=== PATIENT | female | born 1980 | race Caucasian/White ===

== ENCOUNTER 2016-11-07 14:46 | Emergency (ER) | payer OTHER ==
[~2016-11-07] VITALS: Ht 162.6 cm; Wt 91.9 kg
[~2016-11-07 14:46] MED LIST: ADVIN50/60 INH; ALBUAER INH; ALPR1TAB3 PO; ASPI-391 PO; CITA40TA12 PO; DXP/75 PO; GABA1CAP4 PO; GEMF600T PO; GLC850 PO; HMLI SQ; INSDGI SC; LSN20 PO; MONT1TAB3 PO; PRLSR20 PO; RANI150T3 PO; ZOLP10TA PO
[2016-11-07 15:00] VITALS: TEMP 36.7; Ht 162.6 cm; Wt 91.9 kg
[2016-11-07] MEDS ORDERED: INSDGI SC (15:55)
[2016-11-07] MEDS ORDERED: INSU100I SC (15:55)
[2016-11-07] MEDS ORDERED: VNTHFA/IN INH (15:58)
[2016-11-07] MEDS ORDERED: HYDROmorphone INJ 1 MG/ML SYR IM STA (16:03)
[2016-11-07] MEDS ORDERED: ONDANSETRON 4MG OD TAB PO ONE (16:15)
--- NOTE | 2016-11-07 16:27 | DIAGNOSTIC IMAGING REPORT ---
LEFT SHOULDER 3 VIEWS HISTORY: Left shoulder pain. COMPARISON: None. FINDINGS: There is no fracture or dislocation. Soft tissues are unremarkable. The left clavicle is intact. IMPRESSION: No fractures. Electronically signed by: Mahesh Walsh M.D. 11/07/2016 4:26 PM Dictated Date/Time: 11/07/2016 4:25 PM
[2016-11-07 17:02] VITALS: BP 113/72; PULSE 86; O2SAT 93
--- NOTE | 2016-11-07 17:06 | EMERGENCY ROOM VISIT NOTE ---
ED Visit Note First contact with patient: 15:12 CHIEF COMPLAINT: Left arm pain 2-1/2 days HISTORY OF PRESENT ILLNESS: Patient is a [id number] 35-year-old white female who presents to the emergency department for evaluation of left upper arm pain radiating down to her fingers that started about 2-1/2 days ago. She initially noticed some discomfort in the left shoulder/biceps and triceps region. The pain now radiates down her left arm and is worse with any attempts at movement. She denies any direct trauma to the area, no falls or unusual activity prior to the onset of her pain. She has used Excedrin for discomfort. 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 She states that she fell asleep on a chair wrong and she couldn' t move her wrist. She states that she had nerve studies which diagnosed the problem. She did physical therapy and her symptoms completely resolved. She denies any headache or neck pain. She's never had symptoms similar to this previously. She denies any chest pain, palpitations or shortness of breath. Patient also reports that she feels "dehydrated." She states that she has had a dry mouth despite trying to drink a lot of fluids. She denies nausea, vomiting or diarrhea. Her blood sugars have been controlled. REVIEW OF SYSTEMS: Review of systems as per HPI. All other systems reviewed were negative. At least 6 systems reviewed. PMH: Electronic medical records are reviewed and summarized as above/below. See Problem List. SOCIAL HISTORY: Patient lives at home. Smoker. PHYSICAL EXAM: Vital Signs: Reviewed nurse's notes. CONSTITUTIONAL: Patient is an uncomfortable appearing 35-year-old white female who is awake and alert and in moderate distress due to her left arm pain. HEENT: Normocephalic, atraumatic. Pupils equal, round, reactive to light and accommodation. EOMs intact without nystagmus. Sclera are anicteric. Tympanic membranes intact, with normal landmarks. External canals are clear. Oral and nasopharynx are clear. Mucous membranes are moist. HEART: Regular rate and rhythm. LUNGS: Clear to auscultation. EXTREMITIES: The left shoulder is not swollen or deformed on inspection. The range of motion is limited in all directions because of the pain. There is no tenderness of the AC joint, she does have discomfort over the proximal biceps tendon and rotator cuff insertion. No pain, swelling or erythema noted in the biceps region. No palpable cords. Elbow was nontender, wrist is nontender, range of motion there is full, but causes shoulder pain. Radial and ulnar pulses are easily palpable. Sensation light touch is intact. EMERGENCY DEPARTMENT COURSE: BSG was 153. An X-ray of the shoulder does not show any fractures, dislocations, or other abnormality. The patient was fitted with an arm sling. She presents the emergency department for evaluation of left arm pain which appears to be musculoskeletal in nature. She may have a shoulder tendinitis or bursitis. She does not have any evidence for calcific tendinitis on x-ray. I do not suspect DVT. She does not have any signs of infection including cellulitis. It does not appear to be consistent with a cervical radiculopathy. The patient is on a treatment plan restricting her to 2 narcotic injections per month regarding pain related complaints. She did wish to proceed with an injection for her left arm pain. She was given Zofran 4 mg ODT and Dilaudid 1 mg IM. She was observed in the emergency department and did not have any adverse reactions. She has received these medications in the past. X-ray findings were discussed with her. She was encouraged to use the arm sling for comfort. She was advised to use ibuprofen and ice for discomfort. With regards to her dehydration, her blood sugars are appropriate and she does not demonstrating any evidence for dehydration or electrolyte abnormality. I do not suspect DKA. She did not require any IV fluids and was given oral fluids in the emergency department. She was encouraged to follow-up with her primary care provider and orthopedics for further care and management of her symptoms. She was discharged to home with her driving. She rated her pain a 5/10 at discharge. Patient was reviewed in the [facility] Prescription Drug Monitoring Program, and there were no red flags noted. LEFT SHOULDER 3 VIEWS HISTORY: Left shoulder pain. COMPARISON: None. FINDINGS: There is no fracture or dislocation. Soft tissues are unremarkable. The left clavicle is intact. IMPRESSION: No fractures. Problem List Medical Problems: (1) Anxiety Status: Chronic (2) Asthma Status: Chronic (3) Benign hypertension Status: Chronic (4) Bronchitis Status: Resolved (5) Depression Status: Chronic (6) Diabetes Status: Chronic (7) Hyperlipidemia Status: Chronic Surgical Problems: (1) History of cholecystectomy Status: Resolved (2) Hx of appendectomy Status: Resolved (3) Previous section Status: Resolved Current/Historical Medications Scheduled Albuterol Hfa (Ventolin Hfa), 2-4 PUFFS INH Q6H Citalopram Hydrobromide (Celexa), 40 MG PO DAILY Doxepin Hcl (Doxepin), 75 MG PO DAILY Fluticasone Prop/Salmeterol (Advair Diskus 500/50 60 Dose), 1 PUFF INH BID Gabapentin (Gabapentin), 400 MG PO TID Gemfibrozil (Lopid), 600 MG PO DAILY Insulin Glargine (Lantus), 90 UNITS SC AMPM Insulin Lispro (Human) (Humalog), 10-20 UNITS SC DAILY Lisinopril (Lisinopril), 20 MG PO DAILY Metformin HCl (Metformin HCl), 850 MG PO TID Montelukast Sodium (Singulair), 10 MG PO QPM Omeprazole (Prilosec), 20 MG PO BID Ranitidine Hcl (Zantac), 150 MG PO BID Scheduled PRN Alprazolam (Xanax), 1 MG PO HS PRN for Anxiety Zalmrub-Xcqbavxklinek-Ubmqannx (Excedrin Extra Strength), 1-2 TAB PO Q4 PRN for Migraine Zolpidem Tartrate (Ambien), 10 MG PO HS PRN for Sleep Allergies Coded Allergies: Amoxicillin (Verified Allergy, Intermediate, HIVES/ITCHING, 11/07/16) Codeine (Verified Allergy, Unknown, itchiness, 11/07/16) Ketorolac Tromethamine (Verified Allergy, Unknown, hives, 11/07/16) Latex (Verified Allergy, Unknown, rash, 11/07/16) Hydroxyzine (Verified Adverse Reaction, Intermediate, HEART PALPITATIONS, 11/07/16) Uncoded Allergies: VASCEPA (Allergy, Severe, CP, SOB, 01/17/15) Vital Signs Date Time Temp Pulse Resp B/P Pulse Ox O2 Delivery O2 Flow Rate FiO2 11/07/16 17:02 86 113/72 93 Room Air 11/07/16 15:00 36.7 95 20 114/76 92 Room Air Laboratory Results Test 11/07/16 15:48 Bedside Glucose 153 mg/dl (70-90) Medications Administered Medications (Trade) Dose Ordered Sig/Aretha Route Start Time Stop Time Status Last Admin Dose Admin Ondansetron HCl (Zofran Odt) 4 mg ONE ONCE PO 11/07/16 16:15 11/07/16 16:16 DC 11/07/16 16:22 4 MG Hydromorphone HCl (Dilaudid Inj) 1 mg NOW STAT IM 11/07/16 16:03 11/07/16 16:04 DC 11/07/16 16:22 1 MG Departure Information Impression Primary Impression: Arm pain, left Referrals No Doctor, Assigned (PCP) Patient Instructions My [facility] Additional Instructions DO NOT drive, drink alcohol, operate machinery, or perform dangerous activities today. You were given medications in the ER that can affect your ability to safely function or operate a vehicle. Ibuprofen(Motrin, Advil) may be used for fever or pain. Use 600mg every six hours as needed. Take with food. Avoid using more than 2400mg in a 24 hour period. Do not use 2400mg per day for more than three consecutive days without physician direction. Prolonged inappropriate use can lead to stomach upset or ulcers. This medication can be taken if you need to drive, work, or perform activities which may be dangerous when taking narcotic pain medication. (AND/OR) Acetaminophen(Tylenol) may be used for fever or pain. Use 1000mg every six hours as needed. Avoid using more than 3000mg in a 24 hour period. This medication can be taken if you need to drive, work, or perform activities which may be dangerous when taking narcotic pain medication. Ice compresses for 20 minutes at a time four times daily for 2-3 days. Use the sling as instructed. Remove your arm from the sling 4-6 times a day and move all the joints around to keep them loose. Rest and elevate your injury. Continue current medications. Return to the ER immediately for any numbness, tingling, severe pain, extreme swelling in the extremity or as needed. Follow-up with your family doctor or orthopedic surgery for further care and management of your left arm pain.
== END 2016-11-07 17:13 | disposition home or self-care (01) ==
LOC: C.EDB 14:47 → C.EDD 17:13
DX: M79.602 Pain in left arm (principal); F17.200 Nicotine dependence, unspecified, uncomplicated; F41.9 Anxiety disorder, unspecified; J45.909 Unspecified asthma, uncomplicated; I10 Essential (primary) hypertension; E11.9 Type 2 diabetes mellitus without complications; E78.5 Hyperlipidemia, unspecified; Z90.49 Acquired absence of other specified parts of digestive tract; Z79.4 Long term (current) use of insulin

== ENCOUNTER 2016-12-05 00:14 | Observation (INO) | payer OTHER ==
[2016-12-05] VITALS (9 sets, daily range): BP systolic 91–113; BP diastolic 58–77; PULSE 72–83; TEMP 36.5–37; O2SAT 94–98; Ht 162.6 cm; Wt 91.3 kg
[~2016-12-05] VITALS: Ht 162.6 cm; Wt 91.3 kg
[~2016-12-05 00:14] MED LIST changes: -ALBUAER INH; -HMLI SQ; +INSU100I SC; +VNTHFA/IN INH
[2016-12-05] MEDS ORDERED: SODIUM CHLORIDE 0.9% 1000ML 1,000 ML IV STA (00:34)
[2016-12-05 00:59] LABS: MEAN CELL VOLUME 90.1 fL (80-100); MEAN CORPUSCULAR HEMOGLOBIN 33.8 pg (25-34); MEAN CORPUSCULAR HGB CONC 37.6 g/dl (32-36); MEAN PLATELET VOLUME 9.8 fL (7.4-10.4); PLATELET COUNT 202 K/uL (130-400); RED BLOOD COUNT 4.55 M/uL (4.2-5.4); WHITE BLOOD COUNT 9.16 K/uL (4.8-10.8)
[2016-12-05 01:04] LABS: ISTAT CREATININE 0.5 mg/dl (0.6-1.3); ISTAT HEMOGLOBIN 15.3 g/dl (12.0-16.0); ISTAT IONIZED CALCIUM 1.19 mmol/l (1.12-1.32)
[2016-12-05 01:10] LABS: INR 0.9 (0.9-1.1); PARTIAL THROMBOPLASTIN RATIO 0.9
[2016-12-05 01:23] LABS: ALT/SGPT 15 U/L (12-78); AST/SGOT 11 U/L (15-37); BLOOD UREA NITROGEN 10 mg/dl (7-18); CALCIUM 8.6 mg/dl (8.5-10.1); CARBON DIOXIDE 23 mmol/L (21-32); CHLORIDE 106 mmol/L (98-107); CREATININE 0.65 mg/dl (0.60-1.20); GLUCOSE 261 mg/dl (70-99); MAGNESIUM 1.5 mg/dl (1.8-2.4); POTASSIUM 3.7 mmol/L (3.5-5.1); SODIUM 139 mmol/L (136-145)
[2016-12-05 01:28] LABS: URINE APPEARANCE CLEAR (CLEAR); URINE BILIRUBIN NEG (NEG); URINE COLOR YELLOW; URINE NITRITE NEG (NEG); URINE SPECIFIC GRAVITY 1.027 (1.000-1.030); UROBILINOGEN NEG (NEG); ZZURINE CULT IF INDIC CATH NO
[2016-12-05 01:28] LABS: ALKALINE PHOSPHATASE 71 U/L (45-117); PHOSPHORUS 3.3 mg/dl (2.5-4.9)
[2016-12-05 01:29] LABS: MANUAL MICROSCOPIC REQUIRED? NO; REVIEW REQ? NO
[2016-12-05 01:35] LABS: ALLEN TEST POS (POS); ARTERIAL BLD GAS O2 SATURATION 93.2 % (90-95); ARTERIAL BLOOD GAS BASE EXCESS -2.1 mEq/L (-9-1.8); ARTERIAL BLOOD GAS HCO3 22 mmol/L (19-24); ARTERIAL BLOOD GAS PO2 72 mm/Hg (80-95); O2 ADMINISTRATION ROOM AIR
[2016-12-05 01:37] LABS: BASO % 0.2 %; BASO ABS # 0.02 K/uL (0-0.2); COMPLETE YES; EOS % 0.9 %; IG% 0.5 %; LYMPH % 40.8 %; LYMPH ABS # 3.74 K/uL (1.2-3.4); MONO % 5.8 %; NEUT % 51.8 %
[2016-12-05 01:40] LABS: ACETAMINOPHEN < 2 ug/ml (10-30)
[2016-12-05 01:44] LABS: BENZODIAZEPINE, URINE POS (NEG); COCAINE,URINE NEG (NEG); PHENCYCLIDINE, URINE NEG (NEG)
[2016-12-05] MEDS ORDERED: ACET1TAB84 PO (02:22)
[2016-12-05] MEDS ORDERED: NORE1TAB50 PO (02:30)
--- NOTE | 2016-12-05 02:38 | EMERGENCY ROOM VISIT NOTE ---
History Report prepared by Emelia: Shari Hussein Under the Supervision of: Dr. Ever Rodriguez M.D. First contact with patient: 00:29 Chief Complaint: ILLNESS Stated Complaint: ILLNESS,LOSS OF BALANCE,MIGRAINE,ABDOMINAL PAIN,BS History of Present Illness The patient is a 35 year old female who presents to the Emergency Room with complaints of worsening illness with onset several hours ago. Per patient, she saw her PCP this afternoon and felt fine. This evening, the patient started to feel ill. Her blood sugar was 307 when she last checked it, and she notes that her blood sugar has been higher than usual recently. The patient has abdominal pain. She has had blood in her stool for months. The patient has had urinary frequency and she feels weak. She denies recent falls, hitting her head. Additionally, this afternoon, the patient took one dose of gabapentin. Source of History: patient Onset: several hours ago Position: other (global ) Quality: other (illness) Timing: worsening Associated Symptoms: + abdominal pain, + urinary symptoms, + weakness Note: Her blood sugar was 307 when she last checked it, and she notes that her blood sugar has been higher than usual recently. She has had blood in her stool for months. Review of Systems See HPI for pertinent positives & negatives. A total of 10 systems reviewed and were otherwise negative. Past Medical & Surgical Medical Problems: (1) Anxiety (2) Aortic Atherosclerosis (3) Asthma (4) Benign hypertension (5) Bronchitis (6) Depression (7) Diabetes (8) Esophageal Reflux (9) Hyperlipidemia (10) Hyperlipidemia Nec/Nos (11) Hypertension Nos Surgical Problems: (1) History of cholecystectomy (2) Hx of appendectomy (3) Previous section Family History FH: HTN (hypertension) FH: cancer FH: diabetes mellitus FH: lung disease Social History Smoking Status: Current Every Day Smoker Drug Use: none Marital Status: Housing Status: lives with family Occupation Status: unemployed Current/Historical Medications Scheduled Citalopram Hydrobromide (Celexa), 40 MG PO DAILY Doxepin Hcl (Doxepin), 75 MG PO DAILY Fluticasone Prop/Salmeterol (Advair Diskus 500/50 60 Dose), 1 PUFF INH BID Gabapentin (Gabapentin), 300 MG PO TID Gemfibrozil (Lopid), 600 MG PO DAILY Insulin Glargine (Lantus), 90 UNITS SC AMPM Insulin Lispro (Human) (Humalog), 10-20 UNITS SC AC Lisinopril (Lisinopril), 20 MG PO DAILY Metformin HCl (Metformin HCl), 850 MG PO TID Montelukast Sodium (Singulair), 10 MG PO QPM Norethindrone (Contraceptive) (Norethindrone), 0.35 MG PO DAILY Omeprazole (Prilosec), 20 MG PO BID Ranitidine Hcl (Zantac), 150 MG PO BID Scheduled PRN Acetaminophen (Tylenol Arthritis Ext Rel), 650 MG PO Q4 PRN for Pain Albuterol Hfa (Ventolin Hfa), 2-4 PUFFS INH Q8 PRN for SOB/Wheezing Alprazolam (Xanax), 1 MG PO HS PRN for Anxiety Zolpidem Tartrate (Ambien), 10 MG PO HS PRN for Sleep Allergies Coded Allergies: Amoxicillin (Verified Allergy, Intermediate, HIVES/ITCHING, 11/07/16) Codeine (Verified Allergy, Unknown, itchiness, 11/07/16) Ketorolac Tromethamine (Verified Allergy, Unknown, hives, 11/07/16) Latex (Verified Allergy, Unknown, rash, 11/07/16) Hydroxyzine (Verified Adverse Reaction, Intermediate, HEART PALPITATIONS, 11/07/16) Uncoded Allergies: VASCEPA (Allergy, Severe, CP, SOB, 01/17/15) Physical Exam Vital Signs Date Time Temp Pulse Resp B/P Pulse Ox O2 Delivery O2 Flow Rate FiO2 12/05/16 02:27 88 Room Air 12/05/16 02:27 95 Nasal Cannula 2.0 12/05/16 01:56 73 21 107/71 93 Room Air 12/05/16 00:19 36.5 94 18 139/89 98 Room Air Physical Exam GENERAL: Patient is unkempt, disheveled, and has dirt on her hands. Patient non cooperative with exam, she keeps eyes have closed but can clearly open them without a problem. She will not sit up in bed for the exam. HEENT: No acute trauma, normocephalic atraumatic, mucous membranes moist, no nasal congestion, no scleral icterus. NECK: No stridor, no adenopathy, no meningismus, trachea is midline. LUNGS: No dyspnea. Clear to auscultation and equal bilaterally. No wheeze, no rhonchi. HEART: Regular rate and rhythm. No murmurs, rubs, gallops appreciated. ABDOMEN: She has vague diffuse abdominal tenderness without peritonitis. Abdominal pain does not exist when listening to abdominal sounds. Soft, bowel sounds positive, no masses appreciated, no peritonitis. BACK: No midline tenderness, no CVA tenderness EXTREMITIES: When asked to raise arms, she shakes violently but can raise arms when not being asked about it. Normal motion all extremities, no cyanosis, no edema. NEUROLOGIC: Alert and oriented, clear speech, no acute motor or sensory deficits , no focal weakness, cranial nerves grossly intact. SKIN: No rash, no jaundice, no diaphoresis. Medical Decision & Procedures ER Provider Diagnostic Interpretation: X ray results and stated below per my interpretation. Other radiology results and stated below per my review and radiologist interpretation: Chest: 1 view: No infiltrate, no effusion, normal cardiac border. CT Head: Comparison CT of the head without contrast material 08/12/2016. No ICH, mass effect or edema. No evidence of acute cortical stroke. Fluid level in the right maxillary antrum suggesting acute sinusitis. Remaining visualized upper paranasal sinuses and mastoid air cells are clear. Radiologist: Billy Saenz MD. Laboratory Results 12/05/16 00:45 Red Blood Count 4.55, Mean Corpuscular Volume 90.1, Mean Corpuscular Hemoglobin 33.8, Mean Corpuscular Hemoglobin Concent 37.6, Mean Platelet Volume 9.8, Neutrophils (%) (Auto) 51.8, Lymphocytes (%) (Auto) 40.8, Monocytes (%) (Auto) 5.8, Eosinophils (%) (Auto) 0.9, Basophils (%) (Auto) 0.2, Neutrophils # (Auto) 4.74, Lymphocytes # (Auto) 3.74, Monocytes # (Auto) 0.53, Eosinophils # (Auto) 0.08, Basophils # (Auto) 0.02 12/05/16 00:45 Test 12/05/16 00:44 12/05/16 00:45 12/05/16 00:49 12/05/16 01:01 Bedside Lactic Acid Venous 1.25 mmol/L (0.90-1.70) White Blood Count 9.16 K/uL (4.8-10.8) Red Blood Count 4.55 M/uL (4.2-5.4) Hemoglobin 15.4 g/dL (12.0-16.0) Hematocrit 41.0 % (37-47) Mean Corpuscular Volume 90.1 fL (80-100) Mean Corpuscular Hemoglobin 33.8 pg (25-34) Mean Corpuscular Hemoglobin Concent 37.6 g/dl (32-36) Platelet Count 202 K/uL (130-400) Mean Platelet Volume 9.8 fL (7.4-10.4) Neutrophils (%) (Auto) 51.8 % Lymphocytes (%) (Auto) 40.8 % Monocytes (%) (Auto) 5.8 % Eosinophils (%) (Auto) 0.9 % Basophils (%) (Auto) 0.2 % Neutrophils # (Auto) 4.74 K/uL (1.4-6.5) Lymphocytes # (Auto) 3.74 K/uL (1.2-3.4) Monocytes # (Auto) 0.53 K/uL (0.11-0.59) Eosinophils # (Auto) 0.08 K/uL (0-0.5) Basophils # (Auto) 0.02 K/uL (0-0.2) RDW Standard Deviation 41.6 fL (36.4-46.3) RDW Coefficient of Variation 12.7 % (11.5-14.5) Immature Granulocyte % (Auto) 0.5 % Immature Granulocyte # (Auto) 0.05 K/uL (0.00-0.02) Red Blood Cell Morphology Unremarkable Prothrombin Time 10.0 SECONDS (9.0-12.0) Prothromb Time International Ratio 0.9 (0.9-1.1) Activated Partial Thromboplast Time 24.1 SECONDS (21.0-31.0) Partial Thromboplastin Ratio 0.9 Est Creatinine Clear Calc Drug Dose 128.4 ml/min Estimated GFR () 131.5 Estimated GFR (Non- 113.4 BUN/Creatinine Ratio 16.0 (10-20) Calcium Level 8.6 mg/dl (8.5-10.1) Phosphorus Level 3.3 mg/dl (2.5-4.9) Magnesium Level 1.5 mg/dl (1.8-2.4) Total Bilirubin 0.2 mg/dl (0.2-1) Direct Bilirubin < 0.1 mg/dl (0-0.2) Aspartate Amino Transf (AST/SGOT) 11 U/L (15-37) Alanine Aminotransferase (ALT/SGPT) 15 U/L (12-78) Alkaline Phosphatase 71 U/L (45-117) Troponin I < 0.015 ng/ml (0-0.045) Total Protein 7.2 gm/dl (6.4-8.2) Albumin 3.4 gm/dl (3.4-5.0) Salicylates Level 9.9 mg/dl (2.8-20) Acetaminophen Level < 2 ug/ml (10-30) Bedside Hemoglobin 15.3 g/dl (12.0-16.0) Bedside Hematocrit 45 % (37-47) Bedside Sodium 138 mEq/L (135-144) Bedside Potassium 3.7 mEq/L (3.3-5.0) Bedside Chloride 105 mEq/L (101-112) Bedside Total CO2 21 mEq/l (24-31) Anion Gap 17.0 mmol/L (16-25) Bedside Blood Urea Nitrogen 9 mg/dl (7-18) Bedside Creatinine 0.5 mg/dl (0.6-1.3) Bedside Glucose (other) 265 mg/dl (70-99) Bedside Ionized Calcium ([place]) 1.19 mmol/l (1.12-1.32) Ethyl Alcohol mg/dL < 3.0 mg/dl (0-3) Test 12/05/16 01:15 12/05/16 01:27 Urine Color YELLOW Urine Appearance CLEAR (CLEAR) Urine pH 5.0 (4.5-7.5) Urine Specific [place] 1.027 (1.000-1.030) Urine Protein 2+ (NEG) Urine Glucose (UA) 3+ (NEG) Urine Ketones NEG (NEG) Urine Occult Blood 1+ (NEG) Urine Nitrite NEG (NEG) Urine Bilirubin NEG (NEG) Urine Urobilinogen NEG (NEG) Urine Leukocyte Esterase NEG (NEG) Urine WBC (Auto) 0 /hpf (0-5) Urine RBC (Auto) 0-4 /hpf (0-4) Urine Hyaline Casts (Auto) 1-5 /lpf (0-5) Urine Epithelial Cells (Auto) 5-10 /lpf (0-5) Urine Bacteria (Auto) NEG (NEG) Urine Opiates Screen NEG (NEG) Urine Methadone, Qualitative NEG (NEG) Urine Barbiturates NEG (NEG) Urine Phencyclidine (PCP) Level NEG (NEG) Ur Amphetamine/Methamphetamine NEG (NEG) MDMA (Ecstasy) Screen NEG (NEG) Urine Benzodiazepines Screen POS (NEG) Urine Cocaine Metabolite NEG (NEG) Urine Marijuana (THC) NEG (NEG) Arterial Blood pH 7.40 (7.35-7.45) Arterial Blood Partial Pressure CO2 36 mmHg (35-46) Arterial Blood Partial Pressure O2 72 mm/Hg (80-95) Arterial Blood HCO3 22 mmol/L (19-24) Arterial Blood Oxygen Saturation 93.2 % (90-95) Arterial Blood Base Excess -2.1 mEq/L (-9-1.8) Arterial Blood Gas Delivery ROOM AIR Rohit Test POS (POS) Laboratory results as reviewed by me. Medications Administered Medications (Trade) Dose Ordered Sig/Aretha Route Start Time Stop Time Status Last Admin Dose Admin Sodium Chloride (Nss 1000ml) 1,000 ml @ 999 mls/hr Q1H1M STAT IV 12/05/16 00:34 12/05/16 01:34 DC 12/05/16 00:56 999 MLS/HR ECG Indication: abdominal pain Rate (beats per minute): 96 Rhythm: normal sinus Findings: no acute ischemic change, no ectopy ED Course 0029: The patient was evaluated in room B4. A complete history and physical exam was performed. 0034: Sodium Chloride 1000 ml @ 999 mls/hr IV 0158: The patient is obtunded oxygenating 92% on room air. 0159: I discussed the case with Dr. Herzog ([facility]); he will further evaluate the patient. 0202: I spoke to the patients friend who stated that the patient admitted to taking a Xanax earlier can could barely stay awake on the way to the hospital from [place]. Medical Decision Differential: Toxicological, Infectious, Stroke, SAH, Trauma, Electrolyte Abnormality, Hypoglycemia, Alcohol Intoxication, Drug Intoxication, Cardiac Abnormality, Sepsis, Meningitis/Encephalitis, Trauma, Excited Delirium, Serotonin Syndrome, Psychiatric, amongst other pathologies entertained. 35 yr old female arrives for evaluation of many complaints though is mostly too somnolent to give full review of symptoms. She is requesting pain medications though clearly this would not be appropriate. Her exam is quite variable and clearly she has no neuro deficits other than somnolence, though is mostly non- cooperative with examination. Without stimulation she quickly falls asleep. Friend with her admits she couldn't stay awake on trip here and that she was taking Xanax (patient states only gabapentin). CT head done given AMS which fortunately was negative. Labs reveal mild hypoMg which is not significant enough to cause her vast constellation of symptoms. Drug urine with benzos consistent with her exam. ABG done given somnolence with mildly low O2, as is her pulse ox. BG mildly elevated though not significantly high nor is there evidence of acidosis. Did obtain blood cultures though with no fever, no wbc elevation and no clear other findings of infection I do not feel the abx required and her exam is not consistent with meningitis and I feel that LP risks would outweigh benefits. She is stable though clearly to obtunded to send home. Will bring in for further work-up and monitoring. Consults Time Called: 0158 Consulting Physician: Dr. Herzog ([facility]) Returned Call: [phone] I discussed the case with Dr. Herzog ([facility]); he will further evaluate the patient. Impression Primary Impression: Benzodiazepine overdose Additional Impressions: Obtunded Hypomagnesemia Scribe Attestation The scribe's documentation has been prepared under my direction and personally reviewed by me in its entirety. I confirm that the note above accurately reflects all work, treatment, procedures, and medical decision making performed by me. Departure Information Dispostion Being Evaluated By Hospitalist Referrals No Doctor, Assigned (PCP) Patient Instructions My [facility] Problem Qualifiers Primary Impression: Benzodiazepine overdose Encounter type: initial encounter Injury intent: undetermined intent Qualified Codes: T42.4X4A - Poisoning by benzodiazepines, undetermined, initial encounter
[2016-12-05] MEDS ORDERED: ONDANSETRON INJ 2 MG/ML 2 ML VIAL IV PRN (03:00)
[2016-12-05] MEDS ORDERED: ALUMINUM/MAGNESIUM/SIMETH (MAALOX MAX) 30 ML UDC PO PRN (03:00)
[2016-12-05] MEDS ORDERED: ACETAMINOPHEN 325 MG TAB PO PRN (03:00)
[2016-12-05] MEDS ORDERED: MAGNESIUM HYDROXIDE SUSP 30 ML UDC PO PRN (03:00)
[2016-12-05] MEDS ORDERED: POLYETHYLENE (MIRALAX) 17 GM PACK PO PRN (03:00)
[2016-12-05] MEDS ORDERED: ALBUTEROL HFA 8 GM INHALER INH PRN (03:00)
--- NOTE | 2016-12-05 03:37 | History and Physical ---
History & Physical Date & Time of Service: Dec 05, 2016 at 03:13 Chief Complaint: Illness,Loss Of Balance,Migraine,Abdominal Pain,Bs Primary Care Physician: Obi Prabhakar M.D. History of Present Illness Source: partner 35 y/o F w/Hx IDDM, HTN, HPL, asthma, depression and benzodiazepine abuse. Pt was brought into the hospital by her partner who states that she became increasingly lethargic and he was barely able to wake her up. He states additionally that she has been sleeping an abnormal amount recently. He also states that she may be using excessive amounts of Xanax. The pt was barely arousable on arrival to the ER. She denied any Benzo use to the ER attending however her UDS did test (+) for Benzos. She had also stated that her glucose was 900 when she tested it this evening when in fact it was confirmed at 240, an additionally complained of ractal bleeding for several months. Her hemoglobin on admission was 15.4. Her magnesium is slightly low. The pt is difficult to wake up and was unable to provide me with any additional information. She exhibits stable vital signs, adequate oxygen saturation and is protecting her airway at the time of admission. She is admitted for presumed Benzodiazepine overdose. Past Medical/Surgical History Medical Problems: (1) Anxiety Status: Chronic (2) Asthma Status: Chronic (3) Benign hypertension Status: Chronic (4) Bronchitis Status: Resolved (5) Depression Status: Chronic (6) Diabetes Status: Chronic (7) Hyperlipidemia Status: Chronic Surgical Problems: (1) History of cholecystectomy Status: Resolved (2) Hx of appendectomy Status: Resolved (3) Previous section Status: Resolved Family History FH: HTN (hypertension) FH: cancer FH: diabetes mellitus FH: lung disease Social History 20 + pack year history - Benzodiazepine abuse - disability Smoking Status: Current Every Day Smoker Drug Use: none Marital Status: Occupational Status: unemployed Allergies Coded Allergies: Amoxicillin (Verified Allergy, Intermediate, HIVES/ITCHING, 11/07/16) Codeine (Verified Allergy, Unknown, itchiness, 11/07/16) Ketorolac Tromethamine (Verified Allergy, Unknown, hives, 11/07/16) Latex (Verified Allergy, Unknown, rash, 11/07/16) Hydroxyzine (Verified Adverse Reaction, Intermediate, HEART PALPITATIONS, 11/07/16) Uncoded Allergies: VASCEPA (Allergy, Severe, CP, SOB, 01/17/15) Home Medications Scheduled Citalopram Hydrobromide (Celexa), 40 MG PO DAILY Doxepin Hcl (Doxepin), 75 MG PO DAILY Fluticasone Prop/Salmeterol (Advair Diskus 500/50 60 Dose), 1 PUFF INH BID Gabapentin (Gabapentin), 300 MG PO TID Gemfibrozil (Lopid), 600 MG PO DAILY Insulin Glargine (Lantus), 90 UNITS SC AMPM Insulin Lispro (Human) (Humalog), 10-20 UNITS SC AC Lisinopril (Lisinopril), 20 MG PO DAILY Metformin HCl (Metformin HCl), 850 MG PO TID Montelukast Sodium (Singulair), 10 MG PO QPM Norethindrone (Contraceptive) (Norethindrone), 0.35 MG PO DAILY Omeprazole (Prilosec), 20 MG PO BID Ranitidine Hcl (Zantac), 150 MG PO BID Scheduled PRN Acetaminophen (Tylenol Arthritis Ext Rel), 650 MG PO Q4 PRN for Pain Albuterol Hfa (Ventolin Hfa), 2-4 PUFFS INH Q8 PRN for SOB/Wheezing Alprazolam (Xanax), 1 MG PO HS PRN for Anxiety Zolpidem Tartrate (Ambien), 10 MG PO HS PRN for Sleep Review of Systems Could not obtain - Pts partner denies complaints of SOB, CP, fevers, N/V/D Physical Exam Vital Signs Date Time Temp Pulse Resp B/P Pulse Ox O2 Delivery O2 Flow Rate FiO2 12/05/16 02:27 88 Room Air 12/05/16 02:27 95 Nasal Cannula 2.0 12/05/16 01:56 73 21 107/71 93 Room Air 12/05/16 00:19 36.5 94 18 139/89 98 Room Air General Appearance: WD/WN, no apparent distress, + pertinent finding ( Somnolent overweight female in no distress) Head: normocephalic, atraumatic Eyes: normal inspection, PERRL, EOMI ENT: normal ENT inspection, pharynx normal Neck: supple, no adenopathy, thyroid normal, no JVD Respiratory/Chest: chest non-tender, lungs clear, normal breath sounds, no respiratory distress, no accessory muscle use Cardiovascular: regular rate, rhythm, no edema, no gallop Abdomen/GI: normal bowel sounds, non tender, soft Back: normal inspection, no CVA tenderness Extremities/Musculoskelatal: normal inspection, no calf tenderness, normal capillary refill, no pedal edema, normal range of motion Neurologic/Psych: + pertinent finding (Somnolent and difficult to wake up - pupils equal / reactive - begins to answer question appropriately prior to falling back asleep) Skin: normal color, warm/dry, no rash Diagnostics Laboratory Results Results Past 24 Hours Test 12/05/16 00:44 12/05/16 00:45 12/05/16 00:49 12/05/16 01:01 Range/Units Bedside Lactic Acid Venous 1.25 0.90-1.70 mmol/L White Blood Count 9.16 4.8-10.8 K/uL Red Blood Count 4.55 4.2-5.4 M/uL Hemoglobin 15.4 12.0-16.0 g/dL Hematocrit 41.0 37-47 % Mean Corpuscular Volume 90.1 80-100 fL Mean Corpuscular Hemoglobin 33.8 25-34 pg Mean Corpuscular Hemoglobin Concent 37.6 32-36 g/dl Platelet Count 202 130-400 K/uL Mean Platelet Volume 9.8 7.4-10.4 fL Neutrophils (%) (Auto) 51.8 % Lymphocytes (%) (Auto) 40.8 % Monocytes (%) (Auto) 5.8 % Eosinophils (%) (Auto) 0.9 % Basophils (%) (Auto) 0.2 % Neutrophils # (Auto) 4.74 1.4-6.5 K/uL Lymphocytes # (Auto) 3.74 1.2-3.4 K/uL Monocytes # (Auto) 0.53 0.11-0.59 K/uL Eosinophils # (Auto) 0.08 0-0.5 K/uL Basophils # (Auto) 0.02 0-0.2 K/uL RDW Standard Deviation 41.6 36.4-46.3 fL RDW Coefficient of Variation 12.7 11.5-14.5 % Immature Granulocyte % (Auto) 0.5 % Immature Granulocyte # (Auto) 0.05 0.00-0.02 K/uL Red Blood Cell Morphology Unremarkable Prothrombin Time 10.0 9.0-12.0 SECONDS Prothromb Time International Ratio 0.9 0.9-1.1 Activated Partial Thromboplast Time 24.1 21.0-31.0 SECONDS Partial Thromboplastin Ratio 0.9 Sodium Level 139 136-145 mmol/L Potassium Level 3.7 3.5-5.1 mmol/L Chloride Level 106 98-107 mmol/L Carbon Dioxide Level 23 21-32 mmol/L Anion Gap 10.0 17.0 16-25 mmol/L Blood Urea Nitrogen 10 7-18 mg/dl Creatinine 0.65 0.60-1.20 mg/dl Est Creatinine Clear Calc Drug Dose 128.4 ml/min Estimated GFR () 131.5 Estimated GFR (Non- 113.4 BUN/Creatinine Ratio 16.0 10-20 Random Glucose 261 70-99 mg/dl Calcium Level 8.6 8.5-10.1 mg/dl Phosphorus Level 3.3 2.5-4.9 mg/dl Magnesium Level 1.5 1.8-2.4 mg/dl Total Bilirubin 0.2 0.2-1 mg/dl Direct Bilirubin < 0.1 0-0.2 mg/dl Aspartate Amino Transf (AST/SGOT) 11 15-37 U/L Alanine Aminotransferase (ALT/SGPT) 15 12-78 U/L Alkaline Phosphatase 71 45-117 U/L Troponin I < 0.015 0-0.045 ng/ml Total Protein 7.2 6.4-8.2 gm/dl Albumin 3.4 3.4-5.0 gm/dl Salicylates Level 9.9 2.8-20 mg/dl Acetaminophen Level < 2 10-30 ug/ml Bedside Hemoglobin 15.3 12.0-16.0 g/dl Bedside Hematocrit 45 37-47 % Bedside Sodium 138 135-144 mEq/L Bedside Potassium 3.7 3.3-5.0 mEq/L Bedside Chloride 105 101-112 mEq/L Bedside Total CO2 21 24-31 mEq/l Bedside Blood Urea Nitrogen 9 7-18 mg/dl Bedside Creatinine 0.5 0.6-1.3 mg/dl Bedside Glucose (other) 265 70-99 mg/dl Bedside Ionized Calcium ([place]) 1.19 1.12-1.32 mmol/l Ethyl Alcohol mg/dL < 3.0 0-3 mg/dl Test 12/05/16 01:15 12/05/16 01:27 12/05/16 02:56 Range/Units Urine Color YELLOW Urine Appearance CLEAR CLEAR Urine pH 5.0 4.5-7.5 Urine Specific [place] 1.027 1.000-1.030 Urine Protein 2+ NEG Urine Glucose (UA) 3+ NEG Urine Ketones NEG NEG Urine Occult Blood 1+ NEG Urine Nitrite NEG NEG Urine Bilirubin NEG NEG Urine Urobilinogen NEG NEG Urine Leukocyte Esterase NEG NEG Urine WBC (Auto) 0 0-5 /hpf Urine RBC (Auto) 0-4 0-4 /hpf Urine Hyaline Casts (Auto) 1-5 0-5 /lpf Urine Epithelial Cells (Auto) 5-10 0-5 /lpf Urine Bacteria (Auto) NEG NEG Urine Opiates Screen NEG NEG Urine Methadone, Qualitative NEG NEG Urine Barbiturates NEG NEG Urine Phencyclidine (PCP) Level NEG NEG Ur Amphetamine/Methamphetamine NEG NEG MDMA (Ecstasy) Screen NEG NEG Urine Benzodiazepines Screen POS NEG Urine Cocaine Metabolite NEG NEG Urine Marijuana (THC) NEG NEG Arterial Blood pH 7.40 7.35-7.45 Arterial Blood Partial Pressure CO2 36 35-46 mmHg Arterial Blood Partial Pressure O2 72 80-95 mm/Hg Arterial Blood HCO3 22 19-24 mmol/L Arterial Blood Oxygen Saturation 93.2 90-95 % Arterial Blood Base Excess -2.1 -9-1.8 mEq/L Arterial Blood Gas Delivery ROOM AIR Rohit Test POS POS Microbiology Results 12/05/16 Blood Culture, Received Pending 12/05/16 Blood Culture, Received Pending Diagnostic Radiology CT head - maxillary sinusitis described - no additional findings CXR normal Normal EKG Impression Assessment and Plan 35 y/o F w/Hx IDDM, HTN, HPL, asthma, depression and benzodiazepine abuse. Pt was brought into the hospital by her partner who states that she became increasingly lethargic and he was barely able to wake her up. He states additionally that she has been sleeping an abnormal amount recently. He also states that she may be using excessive amounts of Xanax. The pt was barely arousable on arrival to the ER. She denied any Benzo use to the ER attending however her UDS did test (+) for Benzos. She had also stated that her glucose was 900 when she tested it this evening when in fact it was confirmed at 240, an additionally complained of ractal bleeding for several months. Her hemoglobin on admission was 15.4. Her magnesium is slightly low. 1) Somnolence - likely due to Benzodiazepine overuse - we will monitor on telemetry - placed on aspiration precautions - IVF provided - we can obtain additional information when she is more alert. 2) IDDM - no acidosis or gap on arrival - placed on Q6H SS with reduced dose of Lantus until she is eating. 3) Asthma - no wheezing or hypoxia present - cont home inhalers - Nebs PRN if cannot administer her own meds 4) C/O LGI bleed "for months" - this may be superficial as her Hb is WNL as is her MCV - we will request a stool guiac and recheck her Hb AM following hydration. Gi can be called if bleeding is confirmed. 5) Tobacco abuse - should be counseled when awake Full code - SCDs pending guiac results Total time for this admit including review of labs , records , imaging , EKG - discussion with pts family and ER attending - 38 min Level of Care Telemetry Resuscitation Status FULL RESUSCITATION VTE Prophylaxis VTE Risk Assessment Done? Y/N: Yes Risk Level: Low Given or contraindicated: Enoxaparin (Lovenox)SQ
[2016-12-05] MEDS ORDERED: IV FLUIDS COMPLETED PRN (04:00)
[2016-12-05 04:48] LABS: BUN/CREATININE RATIO 16.8 (10-20); CALCIUM 8.2 mg/dl (8.5-10.1); CREATININE 0.55 mg/dl (0.60-1.20); MAGNESIUM 1.4 mg/dl (1.8-2.4); POTASSIUM 3.6 mmol/L (3.5-5.1)
[2016-12-05] MEDS: NSS + 20MEQ KCL 1000ML 1,000 ML IV SCH ×2 (04:54→12:09)
[2016-12-05] MEDS: INSULIN ASPART 100 UNITS/ML 3 ML PEN SC SCH ×5 (05:22→21:11)
--- NOTE | 2016-12-05 06:13 | DIAGNOSTIC IMAGING REPORT ---
CHEST ONE VIEW PORTABLE CLINICAL HISTORY: AMS dyspnea COMPARISON STUDY: 04/27/2016 FINDINGS: The bones soft tissues and hemidiaphragms are normal. The cardiomediastinal silhouette is normal. The lungs are clear. The pulmonary vasculature is normal. IMPRESSION: Negative chest. Electronically signed by: Felipe Schaeffer M.D. 12/05/2016 6:12 AM Dictated Date/Time: 12/05/2016 6:12 AM
--- NOTE | 2016-12-05 06:15 | DIAGNOSTIC IMAGING REPORT ---
HEAD CT NONCONTRAST CT DOSE: 537.48 mGy.cm HISTORY: Mental status change AMS TECHNIQUE: Multiaxial CT images of the head were performed without the use of intravenous contrast. Comparison: 08/12/2016 Findings: The paranasal sinuses and mastoid air cells are clear. Fluid right maxillary sinus.. The calvarium and skull base are intact. The ventricles and sulci are within normal limits. There is no mass, hematoma, midline shift, or acute infarct. Impression: No acute intracranial abnormality. Right maxillary sinusitis. Electronically signed by: Felipe Schaeffer M.D. 12/05/2016 6:13 AM Dictated Date/Time: 12/05/2016 6:12 AM
[2016-12-05] MEDS ORDERED: MAGNESIUM SULFATE 1GM / D5W 1 GM in PREMIXED IN D5W 100 ML IV ONE (07:00)
[2016-12-05] MEDS: METFORMIN HCL 850 MG TAB PO SCH ×3 (07:35→16:33)
[2016-12-05] MEDS: CITALOPRAM 40 MG TAB PO SCH (07:36)
[2016-12-05] MEDS: FLUTICASONE/SALMETEROL (ADVAIR) 500/50 INH 14 PUFF INH SCH ×2 (07:36→21:04)
[2016-12-05] MEDS: GABAPENTIN 300 MG CAP PO SCH ×3 (07:37→21:04)
[2016-12-05] MEDS: GEMFIBROZIL 600 MG TAB PO SCH (07:37)
[2016-12-05] MEDS: DOXEPIN HCL 75 MG CAP PO SCH (07:37)
[2016-12-05] MEDS: PANTOprazole SOD 40 MG TAB PO SCH ×2 (07:37→21:05)
[2016-12-05] MEDS: RANITIDINE HCL 150 MG TAB PO SCH ×2 (07:38→21:06)
[2016-12-05] MEDS: LISINOPRIL 20 MG TAB PO SCH (07:38)
[2016-12-05] MEDS: INSULIN GLARGINE SOLOSTAR 100 UNITS/ML 3 ML PEN SC SCH ×2 (07:40→21:11)
--- NOTE | 2016-12-05 11:01 | Progress Note ---
Progress Note Date of Service Dec 05, 2016. Progress Note Patient admitted to the hospitalist service early this am for suspected benzodiazepine overdose. Per the patient she denies intentional overdose or suicide attempt. PAtient states she took 2 xanax pills. She attributes symptoms to hyperglycemia(though blood sugar 240 on admission). Patient still lethargic but more oriented than presentation per history and physical. Plan will be to continue as per history and physical.
[2016-12-05] MEDS ORDERED: MONTELUKAST SOD 10 MG TAB PO SCH (21:00)
[2016-12-05] MEDS ORDERED: SODIUM CHLORIDE 0.45% 1000ML 1,000 ML IV ONE (23:00)
[2016-12-05] MEDS ORDERED: METOCLOPRAMIDE HCL 5 MG TAB PO ONE (23:30)
[2016-12-05] MEDS ORDERED: CLONIDINE HCL 0.1 MG TAB PO ONE (23:30)
[2016-12-06 00:01] VITALS: O2SAT 97
[2016-12-06 00:07] VITALS: BP 118/80; PULSE 66; TEMP 36.7; O2SAT 97
[2016-12-06 04:00] VITALS: O2SAT 94
[2016-12-06 04:06] VITALS: BP 105/65; PULSE 68; TEMP 36.8; O2SAT 94
[2016-12-06] MEDS: CITALOPRAM 40 MG TAB PO SCH (07:46)
[2016-12-06] MEDS: GEMFIBROZIL 600 MG TAB PO SCH (07:46)
[2016-12-06] MEDS: RANITIDINE HCL 150 MG TAB PO SCH (07:47)
[2016-12-06] MEDS: LISINOPRIL 20 MG TAB PO SCH (07:47)
[2016-12-06] MEDS: METFORMIN HCL 850 MG TAB PO SCH ×2 (07:47→11:31)
[2016-12-06] MEDS: GABAPENTIN 300 MG CAP PO SCH (07:48)
[2016-12-06] MEDS: INSULIN ASPART 100 UNITS/ML 3 ML PEN SC SCH ×2 (07:48→11:41)
[2016-12-06] MEDS: FLUTICASONE/SALMETEROL (ADVAIR) 500/50 INH 14 PUFF INH SCH (07:48)
[2016-12-06] MEDS: PANTOprazole SOD 40 MG TAB PO SCH (07:48)
[2016-12-06] MEDS: DOXEPIN HCL 75 MG CAP PO SCH (07:48)
[2016-12-06] MEDS: INSULIN GLARGINE SOLOSTAR 100 UNITS/ML 3 ML PEN SC SCH (07:50)
[2016-12-06] MEDS ORDERED: HYDROmorphone INJ 1 MG/ML SYR IV STA (08:13)
[2016-12-06 08:17] VITALS: BP 112/79; PULSE 68; TEMP 36.6; O2SAT 97
[2016-12-06 08:35] LABS: BUN/CREATININE RATIO 15.4 (10-20); CALCIUM 8.2 mg/dl (8.5-10.1); CREATININE 0.5 mg/dl (0.60-1.20); POTASSIUM 3.4 mmol/L (3.5-5.1)
[2016-12-06 08:38] LABS: ALB/GLOB RATIO 0.8 (0.9-2)
[2016-12-06 09:34] LABS: MEAN CELL VOLUME 90.7 fL (80-100); MEAN CORPUSCULAR HEMOGLOBIN 33.2 pg (25-34); MEAN CORPUSCULAR HGB CONC 36.6 g/dl (32-36); PLATELET COUNT 187 K/uL (130-400); RED BLOOD COUNT 4.19 M/uL (4.2-5.4); WHITE BLOOD COUNT 8.12 K/uL (4.8-10.8)
--- NOTE | 2016-12-06 10:15 | Discharge Instructions ---
Discharge Instructions Date of Service Dec 06, 2016. Admission Reason for Admission: Benzodiazepine Overdose Discharge Discharge Diagnosis / Problem: benzo overdose Discharge Goals Goal(s): Therapeutic intervention Activity Recommendations Activity Limitations: resume your previous activity Lifting Limitations: none Driving or Machine Use: refrain from driving after taking sedative medication . Instructions / Follow-Up Instructions / Follow-Up You were admitted to the hospital because you were difficult to arouse and there was concern that this was secondary to all of the medications you take, in particular your sedatives such as benzodiazepine. I understand you have had some recent changes in your medication in particular the decrease in your dose of doxepin and the addition of trazodone by Lillian. We would like you to hold your Trazodone for now and continue with the new dose of doxepin. We have also arranged a follow up with Lillian to discuss the medications and possibly change the doses accordingly. 1. STOP Trazodone 2. Continue the new dose of Doxepin 3. Follow up with PCP and lillian this week 4. Please refrain from any driving while using the sedatives Current Hospital Diet Patient's current hospital diet: AHA Diet (Heart Healthy), Diabetes Type 1 Diet Discharge Diet Recommended Diet: Diabetes Type 2 Diet Pending Studies Studies pending at discharge: no Medical Emergencies . Who to Call and When: Medical Emergencies: If at any time you feel your situation is an emergency, please call 911 immediately. . Non-Emergent Contact Non-Emergency issues call your: Primary Care Provider . . "Provider Documentation" section prepared by Dipti Oliver. VTE Core Measure Inpt VTE Proph given/why not?: SCD's [place] Drug Monitoring Program Search Results: patient reviewed within database Drug Monitoring Findings: According to Dr English PDMP was reviewed, medications were steel pickler per schedule , no suspicious activity
[2016-12-06] MEDS ORDERED: POTASSIUM CHLORIDE 20 MEQ TABCR PO STA (10:43)
--- NOTE | 2016-12-06 10:52 | Discharge Summary ---
Discharge Summary Date of Service Dec 06, 2016. (Dipti Oliver MD) Discharge Summary Admission Date: Dec 05, 2016 at 03:03 Discharge Date: Dec 06, 2016 Discharge Disposition: Home Principal Diagnosis: benzo overdose (Dipti Oliver MD) Medication Reconciliation Continued Medications: Acetaminophen (Tylenol Arthritis Ext Rel) 650 Mg Cplt 650 MG PO Q4 PRN for Pain, CAP Albuterol Hfa (Ventolin Hfa) 200 Puffs/[id number] Mcg Aers 2-4 PUFFS INH Q8 PRN for SOB/Wheezing, #1 INHALER Alprazolam (Xanax) 1 Mg Tab 1 MG PO HS PRN for Anxiety Citalopram Hydrobromide (Celexa) 40 Mg Tab 40 MG PO DAILY Fluticasone Prop/Salmeterol (Advair Diskus 500/50 60 Dose) 1 Ea Aerp 1 PUFF INH BID, INHALER Gabapentin (Gabapentin) 300 Mg Cap 300 MG PO TID, #90 Gemfibrozil (Lopid) 600 Mg Tab 600 MG PO DAILY Insulin Glargine (Lantus) 100 Unit/Ml Inj 90 UNITS SC AMPM, VIAL Insulin Lispro (Human) (Humalog) 100 Unit/Ml Inj 10-20 UNITS SC AC Lisinopril (Lisinopril) 20 Mg Tab 20 MG PO DAILY, #30 Metformin HCl (Metformin HCl) 850 Mg Tab 850 MG PO TID Montelukast Sodium (Singulair) 10 Mg Tab 10 MG PO QPM Norethindrone (Contraceptive) (Norethindrone) 0.35 Mg Tab 0.35 MG PO DAILY Omeprazole (Prilosec) 20 Mg Capcr 20 MG PO BID, CAP Ranitidine Hcl (Zantac) 150 Mg Tab 150 MG PO BID Zolpidem Tartrate (Ambien) 10 Mg Tab 10 MG PO HS PRN for Sleep, TAB Discontinued Medications: Doxepin Hcl (Doxepin) 75 Mg Cap 75 MG PO DAILY Discharge Exam Patient feeling well this morning with a mild headache slept well overnight, no fatigue this morning appetite is good no pain otherwise Review of Systems: Constitutional: No fever Eyes: No worsening of vision ENT: No hearing loss Respiratory: No cough, No dyspnea at rest, No dyspnea on exertion, No shortness of breath, No sputum, No wheezing Cardiovascular: No chest pain Abdomen: No constipation, No diarrhea, No nausea, No pain, No vomiting Musculoskeletal: No joint pain, No muscle pain Genitourinary - Female: No dysuria, No hematuria Neurologic: No balance problems, No numbness/tingling, No weakness Psychiatric: + problem reported (denies SI/HI), No depression symptoms Endocrine: No fatigue Physical Exam: General Appearance: WD/WN, no apparent distress Eyes: normal inspection ENT: normal ENT inspection Neck: supple Respiratory/Chest: lungs clear, normal breath sounds, no respiratory distress, no accessory muscle use Cardiovascular: regular rate, rhythm, no murmur Abdomen / GI: normal bowel sounds, non tender, soft Extremities: normal inspection, no calf tenderness Neurologic/Psychiatric: alert, normal mood/affect, oriented x 3 Skin: normal color, warm/dry, no rash Lymphatic: no adenopathy (Dipti Oliver MD) Review of Systems: Constitutional: No fatigue, No fever Respiratory: No shortness of breath Cardiovascular: No chest pain Physical Exam: General Appearance: no apparent distress Respiratory/Chest: lungs clear, no respiratory distress Cardiovascular: regular rate, rhythm Abdomen / GI: normal bowel sounds, non tender, soft Neurologic/Psychiatric: alert, oriented x 3 Skin: warm/dry (Doreen Harley M.D.) Hospital Course This is a 36 yo f that presented to the ED with suspected benzodiazepine overdose because of excessive sedation. She was placed on observation and feeling well this morning. When discussing medications she recently had Trazodone started on dec 03 because of trying to d/c doxepin by her new psychiatrist. She is on multiple sedatives including ambien and xanax that she takes regularly. She is unsure of what had happened and denies SI/HI prior to the incident. 1. Told to hold trazodone 2. Continue the tapered dose of doxepin 3. Refrain from driving while using sedatives 4. Follow up with psych and PCP this week Total Time Spent: Less than 30 minutes This includes examination of the patient, discharge planning, medication reconciliation, and communication with other providers. (Dipti Oliver MD) I have reviewed the medical record and performed a history and physical examination of this patient today. I have discussed the case with Dr. Oliver. The above note reflects my findings, conclusions, and recommendations. Total Time Spent: Greater than 30 minutes (35) (Doreen Harley M.D.) Discharge Instructions Please refer to the electronic Patient Visit Report (Discharge Instructions) for additional information. (Dipti Oliver MD) Additional Copies To Obi Prabhakar M.D.
[2016-12-06 11:47] VITALS: BP 112/79; PULSE 68; TEMP 36.6; O2SAT 97
[2016-12-09 07:31] LABS: HYDROXYETHYLFLURAZEPAM CONF NEGATIVE NG/ML (CUTOFF=50); HYDROXYMIDAZOLAM NEGATIVE NG/ML (CUTOFF=50); HYDROXYTRIAZOLAM CONF NEGATIVE NG/ML (CUTOFF=50); TEMAZEPAM CONF NEGATIVE NG/ML (CUTOFF=50)
== END 2016-12-06 12:15 | disposition home or self-care (01) ==
LOC: ENRESERVTM → ENRESERVDT → C.EDB 00:16 → C.2E 03:03
PROVIDERS: ADMIT Internal Medicine; ATTEND Family Medicine
DX: T42.4X1A Poisoning by benzodiazepines, accidental (unintentional), initial encounter (principal); R53.83 Other fatigue; F41.9 Anxiety disorder, unspecified; I10 Essential (primary) hypertension; J45.909 Unspecified asthma, uncomplicated; F32.9 Major depressive disorder, single episode, unspecified; E11.9 Type 2 diabetes mellitus without complications; E78.5 Hyperlipidemia, unspecified; Z82.49 Family history of ischemic heart disease and other diseases of the circulatory system; Z83.3 Family history of diabetes mellitus; F17.200 Nicotine dependence, unspecified, uncomplicated; E83.42 Hypomagnesemia

== ENCOUNTER 2017-06-23 22:01 | Emergency (ER) | payer OTHER ==
[~2017-06-23] VITALS: Ht 162.6 cm; Wt 80.8 kg
[~2017-06-23 22:01] MED LIST changes: +ACET1TAB84 PO; -ASPI-391 PO; -DXP/75 PO; +NORE1TAB50 PO
[2017-06-23 23:08] VITALS: Ht 162.6 cm; Wt 80.8 kg
--- NOTE | 2017-06-24 00:40 | EMERGENCY ROOM VISIT NOTE ---
History Report prepared by Emelia: Billy Ferguson Under the Supervision of: Dr. Sonja Wick D.O. First contact with patient: 00:03 Chief Complaint: FALL Stated Complaint: FELL OFF BED HIT HEAD BAD MIGRAINE,INJURED R LEG History of Present Illness The patient is a 36 year old female who presents to the Emergency Room with complaints of a constant headache beginning 30 hours ago. She currently rates her discomfort a 10/10 in severity. The patient states that she went to sleep completely normal on Tuesday, and she woke the next morning on the hardwood floor. She reports that she does not know how she got on the floor and she must have hit her head and right knee. The patient notes that she has been lying on her couch all day today with intermittent periods of unconsciousness. She states when she tries walking, her right knee turns outwards. The patient reports that she did not come in until now because her wanted to monitor her first. The patient states she is not a heavy sleeper and does not know why she didn't wake up. Source of History: patient Onset: 30 hours ago Position: head Symptom Intensity: 10/10 Quality: ache Timing: constant Associated Symptoms: + LOC, + nausea, + abdominal pain Note: Associated symptoms: right knee pain Review of Systems See HPI for pertinent positives & negatives. A total of 10 systems reviewed and were otherwise negative. Past Medical & Surgical Medical Problems: (1) Anxiety (2) Aortic Atherosclerosis (3) Asthma (4) Benign hypertension (5) Bronchitis (6) Depression (7) Diabetes (8) Esophageal Reflux (9) Hyperlipidemia (10) Hyperlipidemia Nec/Nos (11) Hypertension Nos Surgical Problems: (1) History of cholecystectomy (2) Hx of appendectomy (3) Previous section Family History FH: HTN (hypertension) FH: cancer FH: diabetes mellitus FH: lung disease Social History Smoking Status: Current Every Day Smoker Drug Use: none Marital Status: Housing Status: lives with family Occupation Status: unemployed Current/Historical Medications Scheduled Alprazolam (Xanax), 0.5 MG PO QAM Citalopram Hydrobromide (Celexa), 40 MG PO DAILY Gabapentin (Gabapentin), 300 MG PO TID Gabapentin (Neurontin), 400 MG PO TID Gemfibrozil (Lopid), 600 MG PO DAILY Insulin Glargine (Lantus), 90 UNITS SC AMPM Insulin Lispro (Human) (Humalog), 10-20 UNITS SC AC Lisinopril (Lisinopril), 20 MG PO DAILY Metformin HCl (Metformin HCl), 850 MG PO TID Montelukast Sodium (Singulair), 10 MG PO QPM Norethindrone (Contraceptive) (Norethindrone), 0.35 MG PO DAILY Omeprazole (Prilosec), 40 MG PO DAILY Ranitidine Hcl (Zantac), 150 MG PO BID Trazodone Hcl (Trazodone), 100 MG PO HS [Unknown Inhaler], 1 PUFF INH BID Scheduled PRN Acetaminophen (Tylenol Arthritis Ext Rel), 650 MG PO Q4 PRN for Pain Albuterol Hfa (Ventolin Hfa), 2-4 PUFFS INH Q8 PRN for SOB/Wheezing Alprazolam (Xanax), 1 MG PO HS PRN for Anxiety Zolpidem Tartrate (Ambien), 10 MG PO HS PRN for Sleep Allergies Coded Allergies: Amoxicillin (Verified Allergy, Intermediate, HIVES/ITCHING, 11/07/16) Codeine (Verified Allergy, Unknown, itchiness, 11/07/16) Ketorolac Tromethamine (Verified Allergy, Unknown, hives, 11/07/16) Latex (Verified Allergy, Unknown, rash, 11/07/16) Hydroxyzine (Verified Adverse Reaction, Intermediate, HEART PALPITATIONS, 11/07/16) Uncoded Allergies: VASCEPA (Allergy, Severe, CP, SOB, 01/17/15) Physical Exam Vital Signs Date Time Temp Pulse Resp B/P (MAP) Pulse Ox O2 Delivery O2 Flow Rate FiO2 06/24/17 03:34 69 118/75 96 Room Air 06/24/17 03:34 36.9 69 18 118/75 96 06/24/17 01:28 75 18 116/72 96 Room Air 06/23/17 23:08 36.9 81 20 150/101 99 Room Air Physical Exam General: Lethargic, slow to answer questions HEENT: Head - normocephalic and atraumatic Pupils are equal, round, and reactive to light. Extraocular eye muscles are intact, and sclera are anicteric. Nose - moist nasal mucosa without discharge. Mouth - moist buccal mucosa. Oropharynx is nonerythematous and there is no tonsillar exudate or edema noted. Ear - Left TM is scared, right TM is normal. Neck: Supple; no JVD, nuchal rigidity, cervical lymphadenopathy, or auscultated bruits. Heart: Regular rate and rhythm. There is a normal S1 and S2 with no murmurs, clicks, or gallops appreciated. Lungs: Clear to auscultation bilaterally with no wheezes, rales, or rhonchi. Abdomen: Soft, completely nontender, nondistended, with good bowel sounds. There are no palpable pulsatile masses or hepatosplenomegaly. There is no guarding, rigidity, or rebound noted. Extremities: No evidence of cyanosis or clubbing. There are easily palpable peripheral pulses. Edema to the right knee with tenderness to palpation over the medial proximal aspect of the knee. Unable to tolerate any ligamentous testing of the knee secondary to pain. Skin: warm and dry with good turgor and no rashes. Medical Decision & Procedures ER Provider Diagnostic Interpretation: Radiology results as stated below per my review and the radiologist's interpretation: 2 View of the Right knee: No joint effusion, no obvious fracture CT HEAD: [place]: CT head 04/26/16. No CT evidence of acute intracranial process. No skull fracture. Visualized sinuses and mastoid air cells are clear. Radiologist: Blane Suero MD Study ready at 0128 and initial results transmitted at 0201. Medications Administered Medications (Trade) Dose Ordered Sig/Aretha Route Start Time Stop Time Status Last Admin Dose Admin Ondansetron HCl (Zofran Odt) 4 mg ONE ONCE PO 06/24/17 00:45 06/24/17 00:46 DC 06/24/17 00:51 4 MG Oxycodone/ Acetaminophen (Percocet 5-325mg Tab) 2 tab NOW ONCE PO 06/24/17 00:45 06/24/17 00:46 DC 06/24/17 00:52 2 TAB Oxycodone/ Acetaminophen (Percocet 5/ 325MG Home Pack) 1 homepack UD ONCE PO 06/24/17 03:00 06/24/17 03:01 DC 06/24/17 03:04 1 HOMEPACK Procedure 0045: Ordered Oxycodone/Acetaminophen 2 tab PO, Ondansetron HCl 4mg PO 0300: Ordered Oxycodone/Acetaminophen 1 homepack PO ED Course 0031: Past medical records reviewed. The patient was evaluated in room B05. A complete history and physical exam was performed. 0045: Ordered Oxycodone/Acetaminophen 2 tab PO, Ondansetron HCl 4mg PO. The patient went for CT scan of the brain and plain x-rays of the right knee. 0242: Upon reevaluation, the patient asked if I could perform an ear exam because she has been experiencing ear pain. Please refer to the physical exam for the finding. I discussed findings and results with her. She verbalized agreement of the treatment plan. The patient will be discharged home when she receives her medication. 0300: Ordered Oxycodone/Acetaminophen 1 homepack PO Medical Decision The patient is a 36 year old female who presents to the ED with a headache and right knee pain. Differential diagnosis includes intracranial trauma, concussion , ligamentous injury to the right knee, knee contusion. The patient had plain x-rays of the right knee with no obvious signs of fracture or joint effusion. She had a knee immobilizer placed and was instructed on crutches. CT scan of brain was unremarkable. . The patient was encouraged to follow-up with orthopedics if the right knee pain or instability persisted. Head Trauma GCS Score: 15 Impression Primary Impression: Headache Additional Impression: Right knee sprain Scribe Attestation The scribe's documentation has been prepared under my direction and personally reviewed by me in its entirety. I confirm that the note above accurately reflects all work, treatment, procedures, and medical decision making performed by me. Departure Information Dispostion Home / Self-Care Referrals Kalpesh Rajan D.O. Forms HOME CARE DOCUMENTATION FORM, IMPORTANT VISIT INFORMATION Patient Instructions My [facility] Problem Qualifiers Primary Impression: Headache Headache type: unspecified Headache chronicity pattern: acute headache Intractability: not intractable Qualified Codes: R51 - Headache Additional Impression: Right knee sprain Encounter type: initial encounter Involved ligament of knee: medial collateral ligament Qualified Codes: S83.411A - Sprain of medial collateral ligament of right knee, initial encounter
[2017-06-24] MEDS ORDERED: ONDANSETRON 4MG OD TAB PO ONE (00:45)
[2017-06-24] MEDS ORDERED: OXYCODONE/ACETAMINOPHEN 5-325 TAB PO ONE (00:45)
[2017-06-24] MEDS ORDERED: GABA1CAP5 PO (02:21)
[2017-06-24] MEDS ORDERED: TRAZ100T29 PO (02:22)
[2017-06-24] MEDS ORDERED: ALPR1TAB3 PO (02:24)
[2017-06-24] MEDS ORDERED: UNKNOWN INHALER INH (02:25)
[2017-06-24] MEDS ORDERED: PERCOCET HOME PACK PO ONE (03:00)
[2017-06-24 03:34] VITALS: BP 118/75; PULSE 69; TEMP 36.9; O2SAT 96
--- NOTE | 2017-06-24 06:30 | DIAGNOSTIC IMAGING REPORT ---
CT HEAD WITHOUT CONTRAST (CT) CLINICAL HISTORY: Head pain status post trauma. Nausea. COMPARISON STUDY: 12/05/2016 TECHNIQUE: Axial CT of the brain is performed from the vertex to the skull base. IV contrast was not administered for this examination. A dose lowering technique was utilized adhering to the principles of ALARA. CT DOSE: 537.48 mGy.cm FINDINGS: No intra or extra-axial mass lesions are visualized. There is no CT evidence of acute cortical infarction. There is no evidence of midline shift. There is no acute hemorrhage. No calvarial fractures are visualized. There is no evidence of pathologic ventricular dilatation. There is no evidence of acute sinusitis IMPRESSION: Normal noncontrast head CT. Electronically signed by: Vidal De La Torre M.D. 06/24/2017 6:29 AM Dictated Date/Time: 06/24/2017 6:28 AM
--- NOTE | 2017-06-24 06:55 | DIAGNOSTIC IMAGING REPORT ---
R KNEE 1 OR 2 VIEWS ROUTINE CLINICAL HISTORY: fall - pain over medial knee. COMPARISON: Right knee radiographs June 08, 2015. FINDINGS: Alignment of the right knee is anatomic. No acute fracture is identified. There is no joint effusion. A small calcific density superior to the patella on lateral projection is chronic. Joint spaces are preserved. IMPRESSION: No acute fracture or joint effusion of the right knee. Electronically signed by: Robert Jc M.D. 06/24/2017 6:54 AM Dictated Date/Time: 06/24/2017 6:53 AM
== END 2017-06-24 05:27 | disposition home or self-care (01) ==
LOC: C.EDB 22:02
DX: R51 Headache (principal); S83.411A Sprain of medial collateral ligament of right knee, initial encounter; R10.9 Unspecified abdominal pain; R11.0 Nausea; E11.9 Type 2 diabetes mellitus without complications; I70.0 Atherosclerosis of aorta; I10 Essential (primary) hypertension; E78.5 Hyperlipidemia, unspecified; K21.9 Gastro-esophageal reflux disease without esophagitis; J45.909 Unspecified asthma, uncomplicated; F32.9 Major depressive disorder, single episode, unspecified; F41.9 Anxiety disorder, unspecified; Z79.4 Long term (current) use of insulin; Z79.899 Other long term (current) drug therapy; Z82.49 Family history of ischemic heart disease and other diseases of the circulatory system; Z83.3 Family history of diabetes mellitus; Z83.6 Family history of other diseases of the respiratory system; F17.200 Nicotine dependence, unspecified, uncomplicated; W06.XXXA Fall from bed, initial encounter